=== PATIENT | male | born 1970 | race Caucasian/White ===

== ENCOUNTER 2023-09-16 11:29 | Emergency (ER) | payer OTHER, SELFPAY ==
[2023-09-16 11:36] VITALS: BP 126/74
[2023-09-16 11:53] LABS: Glucose - Point of Care 125 mg/dl (70-99)
[2023-09-16 11:59] LABS: % Basophils 0.3 % (0-2); % Eosinophils 0.6 % (0-6); % Immature Granulocytes 0.4 % (0-0.5); % Lymphocytes 15.5 % (20.5-51.1); % Neutrophils 77.2 % (42.2-75.2); Absolute Eosinophils 0.1 10^3/uL (0-0.7); Absolute Lymphocytes 1.7 10^3/uL (1.2-3.4); Absolute Monocytes 0.7 10^3/uL (0.1-0.6); Absolute Neutrophils 8.6 10^3/uL (1.4-6.5); Hematocrit 42.2 % (39.0-52.0); Hemoglobin 14.7 g/dL (13.0-18.0); Mean Corp Hgb Conc. 34.8 g/dL (33.0-37.0); Mean Corpuscular Hgb 32.4 pg (27.0-31.0); Mean Platelet Volume 11.1 fL (7.4-10.4); Nucleated Red Blood Cells % 0 % (-); Platelet Count 171 10^3/uL (130-400); Red Blood Cell Count 4.54 10^6/uL (4.70-6.10); Red Cell Dist. Width 11.9 % (11.5-14.5); White Blood Cell Count 11.1 10^3/uL (4.8-10.8)
[2023-09-16 12:21] LABS: ALT (SGPT) 189 U/L (0-50); AST (SGOT) 317 U/L (17-59); Albumin 4.3 g/dl (3.5-5.0); Alkaline Phosphatase 74 U/L (38-126); Blood Urea Nitrogen 23 mg/dl (9-20); Calcium 9.4 mg/dl (8.4-10.2); Carbon Dioxide 26 mmol/L (22-30); Chloride 105 mmol/L (98-107); Glucose 127 mg/dl (70-99); Sodium 137 mmol/L (135-145); Total Bilirubin 1.2 mg/dl (0.2-1.3); eGFR > 60.00
[2023-09-16 12:23] LABS: Troponin I < 0.012 ng/ml
[2023-09-16 12:25] LABS: Potassium 4.4 mmol/L (3.5-5.1)
--- NOTE | 2023-09-16 13:33 | ED.GENMED ---
History of Present Illness
<Maureen Farfan PA-C - Last Filed: 09/16/23 21:47>
General
Chief Complaint: Change in Mental Status
Source: patient
Exam Limitations: none
Time Seen by Provider: 09/16/23 12:58
Nursing documentation reviewed up to this point in time: agreed with
Travel History
Have you had any contact with someone who has COVID-19?: No
Do you have any symptoms of coronavirus? Fever > 100 degrees, chills, cough, shortness of breath, sore throat, loss of taste or smell, muscle aches, or headache?: No
History of Present Illness
History of Present Illness:
Patient is a 52 y.o male with history hyperlipidemia presenting for evaluation of brief alteration in mental status occurring earlier today. This occurred around 10:30 AM lasting approximately 5 minutes. His states that they were sitting on
the couch with their daughter having a conversation when the patient suddenly started staring blankly and not responding to their questions. After an estimated 5 minutes he appeared to return to baseline and patient has been asymptomatic since. He
does not remember the episode that occurred earlier today. Prior to onset of symptoms he does endorse some epigastric chest pain and nausea consistent with previous episodes of acid reflux and took some Tums. Immediately following episode he does
report brief diaphoresis. He denies any shortness of breath, lingering chest pain, weakness, numbness, visual changes, or back pain. Patients states that he did no lose consciousness at any point during the epsiode earlier today.
Patient denies any history of alcohol misuse - drinks a few beers rarely.
He has no known family history of prior stroke. Does endorse significant family history of heart disease.
Phy Exam
<Maureen Farfan PA-C - Last Filed: 09/16/23 21:47>
Physical Exam
Physical Exam:
General: Well appearing and non-toxic, vital signs reviewed- patient afebrile
HEENT: Atraumatic, normocephalic; pupils equal round reactive to light bilaterally, extraocular muscles intact, no nystagmus, no scleral icterus; protecting airway
Neck: appears supple, no jugular venous distention, no tenderness to carotid
CV: Bradycardic, regular rhythm, heart sounds normal, no evidence of cyanosis
Resp: No evidence of respiratory distress, lungs clear; no accessory muscle use
Abd: Soft, nontender, non-distended
Extremities: No deformities, no evidence of cyanosis or edema
Neuro: alert and oriented to person, place, time; speech normal, no focal motor deficits; strength 5/5 in bilateral upper and lower extremitas; CN II-XII intact bilaterally, no focal neurological deficits
Psych: Normal affect
Skin: Intact, no jaundice
Course
<Maureen Farfan PA-C - Last Filed: 09/16/23 21:47>
Orders/Labs/Results
Orders:
Orders
09/16/23 11:40
ECG [Electrocardiogram (*1)] Urgent
Reason for Study: Chest Pain
EKG- Treatment ONCE
09/16/23 11:53
Complete Blood Count/With Diff Urgent
Comprehensive Metabolic Panel Urgent
Monotest Urgent
Comment: ADD-ON
Troponin I Urgent
09/16/23 13:43
CT Head W/o Iv Contrast Urgent
Comment:
Reason For Exam: brief episode AMS
09/16/23 15:58
Prothrombin Time Urgent
Troponin I Urgent
09/16/23 16:43
Add On- LAB Urgent
Tests Added?: monotest
09/16/23 17:50
COVID-19 Antigen Urgent
Source: Nasal Swab
09/16/23 18:34
US Abdomen Complete/Upper Urgent
Comment:
Reason For Exam: transaminitis
Abnormal Lab Results
09/16/23 09/16/23
11:51 11:53
WBC 11.1 H 10^3/uL
(4.8-10.8)
RBC 4.54 L 10^6/uL
(4.70-6.10)
MCH 32.4 H pg
(27.0-31.0)
MPV 11.1 H fL
(7.4-10.4)
Absolute Neuts (auto) 8.6 H 10^3/uL
(1.4-6.5)
Absolute Monos (auto) 0.7 H 10^3/uL
(0.1-0.6)
Neutrophils % 77.2 H %
(42.2-75.2)
Lymphocytes % 15.5 L %
(20.5-51.1)
BUN 23 H mg/dl
(9-20)
Glucose 127 H mg/dl
(70-99)
AST 317 H U/L
(17-59)
ALT 189 H U/L
(0-50)
POC Glucose 125 H mg/dl
(70-99)
09/16/23 11:53
09/16/23 11:53
Vital Signs
Initial and Last Documented VS:
Initial Vital Signs
Temp Pulse Resp BP Pulse Ox
97.9 F 52 20 126/74 100
09/16/23 11:36 09/16/23 11:36 09/16/23 11:36 09/16/23 11:36 09/16/23 11:36
Last Documented Vital Signs
Temp Pulse Resp BP Pulse Ox
97.9 F 53 15 141/94 100
09/16/23 11:36 09/16/23 19:45 09/16/23 19:45 09/16/23 19:00 09/16/23 19:15
Jaerdlt;Mike Zaman DO - Last Filed: 09/16/23 18:41>
Orders/Labs/Results
Orders:
Orders
09/16/23 11:40
ECG [Electrocardiogram (*1)] Urgent
Reason for Study: Chest Pain
EKG- Treatment ONCE
09/16/23 11:53
Complete Blood Count/With Diff Urgent
Comprehensive Metabolic Panel Urgent
Monotest Urgent
Comment: ADD-ON
Troponin I Urgent
09/16/23 13:43
CT Head W/o Iv Contrast Urgent
Comment:
Reason For Exam: brief episode AMS
09/16/23 15:58
Prothrombin Time Urgent
Troponin I Urgent
09/16/23 16:43
Add On- LAB Urgent
Tests Added?: monotest
09/16/23 17:50
COVID-19 Antigen Urgent
Source: Nasal Swab
09/16/23 18:34
US Abdomen Complete/Upper Urgent
Comment:
Reason For Exam: transaminitis
Abnormal Lab Results
09/16/23 09/16/23
11:51 11:53
WBC 11.1 H 10^3/uL
(4.8-10.8)
RBC 4.54 L 10^6/uL
(4.70-6.10)
MCH 32.4 H pg
(27.0-31.0)
MPV 11.1 H fL
(7.4-10.4)
Absolute Neuts (auto) 8.6 H 10^3/uL
(1.4-6.5)
Absolute Monos (auto) 0.7 H 10^3/uL
(0.1-0.6)
Neutrophils % 77.2 H %
(42.2-75.2)
Lymphocytes % 15.5 L %
(20.5-51.1)
BUN 23 H mg/dl
(9-20)
Glucose 127 H mg/dl
(70-99)
AST 317 H U/L
(17-59)
ALT 189 H U/L
(0-50)
POC Glucose 125 H mg/dl
(70-99)
09/16/23 11:53
09/16/23 11:53
Vital Signs
Initial and Last Documented VS:
Initial Vital Signs
Temp Pulse Resp BP Pulse Ox
97.9 F 52 20 126/74 100
09/16/23 11:36 09/16/23 11:36 09/16/23 11:36 09/16/23 11:36 09/16/23 11:36
Last Documented Vital Signs
Temp Pulse Resp BP Pulse Ox
97.9 F 53 15 141/94 100
09/16/23 11:36 09/16/23 19:45 09/16/23 19:45 09/16/23 19:00 09/16/23 19:15
<Maureen Farfan PA-C - Last Filed: 09/16/23 21:47>
MDM/Problems Addressed
Differential Diagnosis Includes:
TIA, near syncopal episode, CVA, seizure, ACS
MDM/Problems Addressed:
Patient is a 52 year old male w/ history HLD presenting for evaluation following episode this morning where he seemed to not be responding to his family members. He was sitting on the couch when he started to feel symptoms of acid reflux with mild
epigastric pain and nausea. He then had an approximately 5 minute episode of starting without the ability to respond to his family with immediate diaphoresis following episode. He did not lose consciousness and does not remember this brief episode.
History of acid reflux in the past that has been under well control. He is asymptomatic in emergency department since arriving. Denies any chest pain, shortness of breath, fevers, chills. He did start a statin about 6 months ago for high
cholesterol -had blood work done in May which was normal. He appears well, in no apparent distress. Vital signs are stable. Physical exam as documented above. Neuro exam without any focal neurologic findings.
EKG shows sinus bradycardia without any signs of ischemia. Will get basic labs and troponin. Based on brief episode of aphasia - will get CT of head for possible TIA workup.
CBC with mild leukocytosis of 11.1. Otherwise no clinically significant abnormalities. CMP shows moderate transaminitis with AST of 317 and ALT of 189. Initial troponin negative. Being the patient has no history of alcohol misuse or abdominal
pain currently will get moderate test search or underlying reason for transaminitis. Will swab for COVID. Will repeat troponin to trend and ensure not rising.
COVID-negative. Monotest negative.
CT of head shows no acute abnormalities
As patient had normal blood work done in ll get abdominal ultrasound to eval for cause of transaminitis.
Abdominal ultrasound shows evidence of gallstones without any findings suggestive of acute cholecystitis. Sonographic White sign negative. Given the patient has no abdominal pain�will give referral for general surgery to follow-up outpatient.
return precautions discussed. Transaminitis possibly due to gallstones versus statin use.
Patient has remained asymptomatic in the emergency department. He is hemodynamically stable. No focal neurologic deficits�suspect this may have been a near syncopal event related to acid reflux. No indication for admission at this time. He is
stable for discharge with primary care follow-up this week. Discussed with patient for possible follow-up with GI and outpatient carotid ultrasound. Will still have patient's stop statin with transaminitis noted today. Referral for general
surgery given today to follow-up outpatient. Will prescribe PPI for him to take over the next 2 weeks. Patient and patient's comfortable with this plan. All questions answered.
Chronic conditions affecting care:
Reflux, hyperlipidemia
Acute Exacerbation and/or Progression of Chronic Illness:
Near syncope, cholelithiasis
<Maureen Farfan PA-C - Last Filed: 09/16/23 21:47>
*Radiology
Radiology exam reviewed: radiology read reviewed
*Pulse Oximetry
Patient hypoxic: no
*EKG
Interpreted by ED Provider?: NA
EKG Intrepretation Date: 09/16/23
Interpretation: normal
Comparison EKG: no comparison EKG present
Heart Rate: 46
Rate: bradycardiac
Rhythm: sinus
[place]: normal axis
Interval: normal interval
QRS Pattern: normal QRS
Ischemia: no ischemia
*Climbing Guide Interpretation
Rate: normal
Interpretation: normal
Heart Rate: 56
Rhythm: sinus
*Critical Care Note
Total Time (30-74mins, 75-104mins- exclusive of procedures): Not Applicable
ED Attending Note
<Maureen Farfan PA-C - Last Filed: 09/16/23 21:47>
-
Portions of this chart may have been created with voice recognition software.� Occasional wrong word or��sound alike� substitutions may have occurred due to the inherent limitations of voice recognition software.
<Mike Zaman DO - Last Filed: 09/16/23 18:41>
ED Attending Note
Patient seen and examined by attending physician: Yes
I performed the substantive portion of visit, reviewed & personally made and approve the management plan that is documented in note by myself or SHONA.: Yes
ED Attending Note:
Patient is a 52-year-old male who this morning was sitting on the couch and felt pressure in his upper abdomen similar to his reflux. Patient then began to feel nauseous and appeared pale and then seemed to be not responding to his family's just
eyes staring ahead and then being profusely diaphoretic afterwards. Patient denied any chest pain, shortness of breath or palpitations. Patient denies any previous history of similar episodes. Patient was nonverbal during the episode. Patient
felt fine. Patient states he has these episodes takes a Tums and burps and feels 100% better. Patient has been on PPI before. Patient does not smoke. Patient rarely drinks. Patient denies history of hypertension and diabetes. Patient was
recently started on a statin about 10 months ago. In May the patient had normal lab work. Patient never lay down stayed sitting. Patient denies fever or chills, nasal congestion, cough. Patient denies any recent illnesses or injuries. There
is a family history of coronary artery disease. Patient denies any exertional symptoms. Patient denies any melena or hematochezia. On physical exam the patient is in no distress. Heart is regular without murmur or gallop. Lungs are clear.
Patient's neck is supple without bruit. No thyromegaly. Abdomen soft nontender. Legs without edema, cyanosis. Patient has good pulses. EKG is unremarkable. Labs are fine. CT of the head was done with a suspicion for possible TIA because of
the episode of not speaking. Patient's liver enzymes are significantly elevated. Will check an ultrasound. Believe this may be due to the statin. Will have the patient follow-up with his doctor this week and remain off the statin during that
time. In addition patient may need gastroenterology follow-up and ultrasound of his carotids. I believe this more GI issues of reflux/gastroenteritis with near syncope.
Discharge Plan
Departure
Patient Disposition: Home (Routine Discharge)
Date of Disposition: 09/16/23
Time of Disposition: 21:24
Patient with high blood pressure during this ER visit?: Yes
Condition: Good
Covid-19: Negative COVID-19
Discharge Problem:
Near syncope, Acid reflux, Cholelithiasis
Instructions: Gallstones (DC), Acid reflux and gastroesophageal reflux disease in adults, BLOOD PRESSURE
Prescriptions:
New
omeprazole 20 mg capsule,delayed release(DR/EC)
20 mg PO DAILY 14 Days Qty: 14 0RF
Referrals:
Ayesha Mcarthur MD [Family Provider] - Next open appointment
Semaj Sanchez MD [Active] - As needed
Activity Restrictions/Additional Instructions:
-Return to the emergency department with any high fevers, severe abdominal pain, intractable nausea/vomiting, chest pain, shortness of breath, lightheadedness/fainting, significant worsening in current symptoms or any other concerns
-Your prescription for omeprazole has been sent to your pharmacy. You should take this daily for the next two weeks to help with your acid reflux.
-As discussed - you should stop your statin medication until follow-up with your primary care provider. Your liver function tests were found to be elevated while in the emergency department today - you should have this blood work rechecked with your
primary care physician
-Follow-up with your primary care regarding further management of acid reflex and near fainting episode today. They may have you follow up with GI specialist or have an outpatient ultrasound of your carotid arteries
-You can follow up with general surgery for further evaluation of gallstones and future outpatient treatment options. Try to adhere to a low fat diet.
Interventions
Interventions:
*General Assessment Last Done: 09/16/23 15:56
*Neglect/Abuse Screening Last Done: 09/16/23 15:56
ED- Fall Risk Assessment Last Done: 09/16/23 17:58
*ED COVID-19 Vaccine History Last Done: 09/16/23 11:36
ED- Neurological Assessment Last Done: 09/16/23 17:55
[2023-09-16 15:46] VITALS: BMI 24.4
[2023-09-16 16:00] VITALS: BP 135/81
[2023-09-16 16:23] LABS: INR 0.97; PT 13.1 Sec (11.4-14.6)
[2023-09-16 16:37] LABS: Troponin I < 0.012 ng/ml
[2023-09-16 17:00] VITALS: BP 138/86
[2023-09-16 17:29] LABS: Monotest Negative (Negative)
[2023-09-16 18:00] VITALS: BP 140/86
[2023-09-16 18:34] LABS: COVID-19 Antigen Negative (Negative)
[2023-09-16 19:00] VITALS: BP 141/94
[2023-09-16 20:00] VITALS: BP 140/83
== END 2023-09-16 21:57 | disposition home or self-care (01) ==
LOC: EMR 11:29
PROVIDERS: Emergency Medicine; Physician Assistant; EMERGENCY PHYSICIAN Emergency Medicine; FAMILY PHYSICIAN Family Medicine
DX: R55 Syncope and collapse (principal); K21.9 Gastro-esophageal reflux disease without esophagitis; K80.20 Calculus of gallbladder without cholecystitis without obstruction; R41.82 Altered mental status, unspecified; E78.00 Pure hypercholesterolemia, unspecified; Z82.49 Family history of ischemic heart disease and other diseases of the circulatory system
CPT/HCPCS: 99284; 70450; 76700; 80053; 82962; 84484; 85025; 85610; 86308; 87811; 93005

== ENCOUNTER → 2024-05-16 06:26 | Day surgery (SDC) | payer OTHER, SELFPAY | LOC: GI 06:26 | PROVIDERS: ATTENDING PHYSICIAN Internal Medicine Gastroenterology | DX: K20.90 Esophagitis, unspecified without bleeding (principal); K22.89 Other specified disease of esophagus; K44.9 Diaphragmatic hernia without obstruction or gangrene; K31.7 Polyp of stomach and duodenum; K31.89 Other diseases of stomach and duodenum; R10.13 Epigastric pain | CPT/HCPCS: 43239; 88305; 88342 ==

== ENCOUNTER 2025-08-25 06:26 | Day surgery (SDC) | payer BC, SELFPAY | END 2025-08-25 08:50 | disposition home or self-care (01) | LOC: GI 06:26 | PROVIDERS: ATTENDING PHYSICIAN Internal Medicine Gastroenterology | DX: Z12.11 Encounter for screening for malignant neoplasm of colon (principal); Z86.0100 Personal history of colon polyps, unspecified; K57.30 Diverticulosis of large intestine without perforation or abscess without bleeding; K64.8 Other hemorrhoids | CPT/HCPCS: G0105 ==